=== PATIENT | male | born 1975 | race American Indian/Alaskan Native ===

== ENCOUNTER 2017-02-04 23:13 | Emergency (ER) | payer MEDICARE, OTHER ==
[2017-02-05 00:53] LABS: Basophils % (Auto) 0.4 % (0.0-1.8); Eosinophils % (Auto) 0.5 % (0.0-4.3); Hemoglobin 14.9 gm/dl (11.8-15.2); Mean Corpuscular HGB Conc 34 % (32-34); Mean Corpuscular Hemoglobin 33 pg (28-32); Mean Corpuscular Volume 97 fl (84-94); Platelet Count 280 K/mm3 (140-440); Red Blood Count 4.52 M/mm3 (3.65-5.03); Red Cell Distribution Width 15.6 % (13.2-15.2); White Blood Count 6.8 K/mm3 (4.5-11.0)
[2017-02-05 01:11] LABS: Anion Gap 17 mmol/L; BUN/Creatinine Ratio 9.09; Blood Urea Nitrogen 10 mg/dL (9-20); Carbon Dioxide 26 mmol/L (22-30); Chloride 100.3 mmol/L (98-107); Glucose 96 mg/dL (75-100); Potassium 3.6 mmol/L (3.6-5.0); Sodium 140 mmol/L (137-145)
[2017-02-05] MEDS ORDERED: ZOFRAN PO ONE (06:16)
[2017-02-05] MEDS ORDERED: ZOFRAN ODT PO ONE (06:16)
[2017-02-05] MEDS ORDERED: TORADOL IM ONE (06:16)
[2017-02-05] MEDS ORDERED: MORPHINE IM ONE (06:16)
--- NOTE | 2017-02-05 06:59 | Emergency Department Report ---
ED Extremity Problem HPI - General Chief complaint: Extremity Problem,Nontraumatic Stated complaint: RIGHT FOOT INJURY Time Seen by Provider: 02/05/17 05:13 Source: patient Mode of arrival: Ambulatory Limitations: No Limitations - History of Present Illness Initial comments: Pt presents to ED with c/o pain and swelling rt foot and ankle x 2 days. Pt denies SOB. Pt has chills. Past hx of DVT Complaint: extremity pain (right foot and ankle), extremity swelling (right foot and ankle) -: Gradual, days(s) (2, progressively getting worse) Location: right, lower extremity (foot and ankle) -: No myalgia, Yes arthralgia, No fever, No associated dyspnea, No associated chest pain Radiation: none Severity scale (0 -10): 10 Quality: aching, sharp Consistency: intermittent Improves with: nothing Worsens with: weight bearing, walking Associated Symptoms: arthralgias. denies: fever, myalgias, rash - Related Data Previous Rx's Medication Instructions Recorded Last Taken Type Ondansetron [Zofran TAB] 4 mg PO Q8HR PRN #20 tablet 01/29/17 Unknown Rx Oxycodone HCl/Acetaminophen 1 each PO Q6HR PRN #20 tablet 01/29/17 Unknown Rx [Percocet 7.5/325 mg] Pantoprazole [Protonix] 40 mg PO QDAY #30 tablet 01/29/17 Unknown Rx Allergies Allergy/AdvReac Type Severity Reaction Status Date / Time No Known Allergies Allergy Verified 06/25/13 09:48 ED Review of Systems ROS: Stated complaint: RIGHT FOOT INJURY Other details as noted in HPI Comment: All other systems reviewed and negative Constitutional: malaise, weakness. denies: diaphoresis Eyes: denies: eye pain, eye discharge, vision change ENT: denies: ear pain, throat pain, dental pain Respiratory: denies: cough, orthopnea, shortness of breath, SOB with exertion Cardiovascular: denies: chest pain, palpitations, dyspnea on exertion, edema, syncope, paroxysmal nocturnal dyspnea Endocrine: no symptoms reported Gastrointestinal: denies: nausea, vomiting, diarrhea, constipation, hematemesis Genitourinary: denies: urgency, dysuria, frequency, hematuria Musculoskeletal: joint swelling, arthralgia, other (swelling of rt foot). denies: back pain Skin: denies: change in color, pruritus Neurological: denies: headache, weakness, numbness, paresthesias ED Past Medical Hx - Past Medical History Previous Medical History?: Yes Hx Hypertension: Yes Hx Congestive Heart Failure: No Hx Diabetes: No Hx Deep Vein Thrombosis: Yes (in right hand, states 10 years ago) Hx Asthma: No Hx COPD: No Additional medical history: pancreatitis see HPI - Surgical History Past Surgical History?: Yes Hx Cholecystectomy: Yes Additional Surgical History: Left lower extremity rods and pins secondary to fracture, pin in right thumb - Social History Smoking Status: Current Every Day Smoker Substance Use Type: None - Medications Home Medications: Home Medications Medication Instructions Recorded Confirmed Last Taken Type Ondansetron [Zofran TAB] 4 mg PO Q8HR PRN #20 tablet 01/29/17 Unknown Rx Oxycodone HCl/Acetaminophen 1 each PO Q6HR PRN #20 tablet 01/29/17 Unknown Rx [Percocet 7.5/325 mg] Pantoprazole [Protonix] 40 mg PO QDAY #30 tablet 01/29/17 Unknown Rx ED Physical Exam - General Limitations: No Limitations General appearance: alert, in distress (mild to moderate) - Head Head exam: Present: atraumatic, normocephalic, normal inspection - Eye Eye exam: Present: normal appearance, PERRL, EOMI - ENT ENT exam: Present: normal exam, normal orophraynx, mucous membranes moist - Neck Neck exam: Present: normal inspection, full ROM. Absent: tenderness, lymphadenopathy - Respiratory Respiratory exam: Present: normal lung sounds bilaterally. Absent: respiratory distress, wheezes, rales, rhonchi, stridor, chest wall tenderness, accessory muscle use, decreased breath sounds - Cardiovascular Cardiovascular Exam: Present: regular rate, normal rhythm, normal heart sounds - GI/Abdominal GI/Abdominal exam: Present: soft, distended (obese abdomen). Absent: tenderness , guarding, rebound - Rectal Rectal exam: Present: deferred - Expanded Lower Extremity Exam Left Hip exam: Present: normal inspection, full ROM. Absent: tenderness, swelling, abrasion, laceration, ecchymosis Upper Leg exam: Present: normal inspection, full ROM. Absent: tenderness, abrasion, laceration, ecchymosis Knee exam: Present: normal inspection, full ROM. Absent: tenderness, swelling, abrasion, laceration, dislocation, erythema, effusion Lower Leg exam: Present: tenderness, swelling (rt leg, slightly warm to touch) Ankle exam: Present: tenderness, swelling. Absent: ecchymosis, dislocation Foot/Toe exam: Present: tenderness, swelling. Absent: dislocation, erythema, calcaneal tenderness Neuro vascular tendon exam: Present: no vascular compromise - Back Exam Back exam: Present: normal inspection, full ROM. Absent: CVA tenderness (L) - Neurological Exam Neurological exam: Present: alert, oriented X3, CN II-XII intact ED Course Vital Signs 02/04/17 02/05/17 02/05/17 23:48 05:19 05:30 Temperature 98.8 F Pulse Rate 69 54 L Respiratory 20 18 Rate Blood Pressure 126/75 113/69 O2 Sat by Pulse 100 99 99 Oximetry 02/05/17 02/05/17 06:16 06:41 Temperature Pulse Rate Respiratory 18 18 Rate Blood Pressure O2 Sat by Pulse 98 Oximetry ED Medical Decision Making - Lab Data Result diagrams: 02/05/17 00:22 02/05/17 00:22 Critical care attestation.: If time is entered above; I have spent that time in minutes in the direct care of this critically ill patient, excluding procedure time. ED Disposition Condition: Stable Referrals: PRIMARY CARE, [Primary Care Provider] - 3-5 Days
[2017-02-05 07:53] VITALS: BP 123/71
[2017-02-05] MEDS ORDERED: TYLENOL PO ONE (08:35)
[2017-02-05] MEDS ORDERED: NACL 0.45% 1000 ML 0 ML IV ONE (09:50)
[2017-02-05] MEDS ORDERED: NACL 0.9% 1000 ML 1,000 ML ONE (09:51)
--- NOTE | 2017-02-05 10:03 | XRay Report ---
X-RAY RIGHT FOOT THREE VIEWS: 02/05/17 06:13:00 CLINICAL: Swelling. FINDINGS: No fracture or dislocation. Diffuse moderate soft tissue swelling. No soft tissue air or foreign body. Moderate arthritic changes in the midfoot. Plantar calcaneal spur. IMPRESSION: Nonspecific soft tissue swelling. Moderate degenerative changes.
--- NOTE | 2017-02-05 10:04 | XRay Report ---
XRAY RIGHT ANKLE THREE VIEWS: 02/04/17 06:22 CLINICAL: Ankle swelling. FINDINGS: The ankle mortise is intact.No fracture or dislocation. Moderate soft tissue swelling, medial greater than lateral. No soft tissue air or foreign body. IMPRESSION: Nonspecific soft tissue swelling.
--- NOTE | 2017-02-05 10:40 | Event Note ---
Date: 02/05/17 Ultrasound of the right lower extremity demonstrates a DVT in the right superficial femoral vein. Patient denies headache, neck pain, chest pain, abdominal pain, shortness of breath, hematemesis/bright red blood per rectum. Case is discussed with vascular surgeon on-call, Dr. Gerardo, who recommends eliquis, 10 mg twice daily for the next week, and then 5 mg daily twice daily. Patient will be started on this medication today, discharged with a one-month supply, and instructed to follow-up with either outpatient primary care, or vascular surgery. He will be discharged at this time, return precautions are reviewed. Vital Signs 02/04/17 02/05/17 02/05/17 23:48 05:19 05:30 Temperature 98.8 F Pulse Rate 69 54 L Respiratory 20 18 Rate Blood Pressure 126/75 113/69 O2 Sat by Pulse 100 99 99 Oximetry 02/05/17 02/05/17 02/05/17 05:46 06:00 06:16 Temperature Pulse Rate 53 L 53 L 69 Respiratory 16 16 14 Rate Blood Pressure 113/69 131/80 131/80 O2 Sat by Pulse 100 100 100 Oximetry 02/05/17 02/05/17 02/05/17 06:30 06:41 06:46 Temperature Pulse Rate 60 61 Respiratory 18 18 18 Rate Blood Pressure 130/78 130/78 O2 Sat by Pulse 100 98 Oximetry 02/05/17 02/05/17 02/05/17 07:00 07:11 07:16 Temperature Pulse Rate 56 L Respiratory 16 18 Rate Blood Pressure 122/70 122/70 O2 Sat by Pulse 97 98 Oximetry 02/05/17 02/05/17 02/05/17 07:30 07:46 09:00 Temperature Pulse Rate Respiratory 18 Rate Blood Pressure 123/71 123/71 O2 Sat by Pulse 86 100 Oximetry Lab Results 02/05/17 02/05/17 02/05/17 Range/Units 00:22 00:22 07:09 WBC 6.8 (4.5-11.0) K/mm3 RBC 4.52 (3.65-5.03) M/mm3 Hgb 14.9 (11.8-15.2) gm/dl Hct 44.0 (35.5-45.6) % MCV 97 H (84-94) fl MCH 33 H (28-32) pg MCHC 34 (32-34) % RDW 15.6 H (13.2-15.2) % Plt Count 280 (140-440) K/mm3 Lymph % (Auto) 27.8 (13.4-35.0) % Mccormick % (Auto) 9.2 H (0.0-7.3) % Eos % (Auto) 0.5 (0.0-4.3) % Baso % (Auto) 0.4 (0.0-1.8) % Lymph # 1.9 (1.2-5.4) K/mm3 Mccormick # 0.6 (0.0-0.8) K/mm3 Eos # 0.0 (0.0-0.4) K/mm3 Baso # 0.0 (0.0-0.1) K/mm3 Seg Neutrophils % 62.1 (40.0-70.0) % Seg Neutrophils # 4.2 (1.8-7.7) K/mm3 D-Dimer (0-234) ng/mlDDU Sodium 140 (137-145) mmol/L Potassium 3.6 (3.6-5.0) mmol/L Chloride 100.3 (98-107) mmol/L Carbon Dioxide 26 (22-30) mmol/L Anion Gap 17 mmol/L BUN 10 (9-20) mg/dL Creatinine 1.1 (0.8-1.5) mg/dL Estimated GFR > 60 ml/min BUN/Creatinine Ratio 9.09 % Glucose 96 (75-100) mg/dL Lactic Acid 1.10 (0.7-2.0) mmol/L Calcium 9.0 (8.4-10.2) mg/dL 02/05/17 Range/Units 07:09 WBC (4.5-11.0) K/mm3 RBC (3.65-5.03) M/mm3 Hgb (11.8-15.2) gm/dl Hct (35.5-45.6) % MCV (84-94) fl MCH (28-32) pg MCHC (32-34) % RDW (13.2-15.2) % Plt Count (140-440) K/mm3 Lymph % (Auto) (13.4-35.0) % Mccormick % (Auto) (0.0-7.3) % Eos % (Auto) (0.0-4.3) % Baso % (Auto) (0.0-1.8) % Lymph # (1.2-5.4) K/mm3 Mccormick # (0.0-0.8) K/mm3 Eos # (0.0-0.4) K/mm3 Baso # (0.0-0.1) K/mm3 Seg Neutrophils % (40.0-70.0) % Seg Neutrophils # (1.8-7.7) K/mm3 D-Dimer 815.92 H (0-234) ng/mlDDU Sodium (137-145) mmol/L Potassium (3.6-5.0) mmol/L Chloride (98-107) mmol/L Carbon Dioxide (22-30) mmol/L Anion Gap mmol/L BUN (9-20) mg/dL Creatinine (0.8-1.5) mg/dL Estimated GFR ml/min BUN/Creatinine Ratio % Glucose (75-100) mg/dL Lactic Acid (0.7-2.0) mmol/L Calcium (8.4-10.2) mg/dL LIVE [facility],JEANNIE DALAL Male : 1975 MedRec# [id number] 02/05/17 10:13 - Radiology Dept. Note by MELISSA ELENA Acct Num: [id number] : 1975 Patient Age: 41 VASCULAR LAB PRELIMINARY REPORT BLE VENOUS DOPPLER COMPLETED DVT NOTED IN RT SFV DR. PEÑA INFORMED Initialized on 02/05/17 10:13 - END OF NOTE
[2017-02-05] MEDS ORDERED: LOVENOX SUB-Q ONE (10:42)
--- NOTE | 2017-02-07 07:36 | Vascular Lab Report ---
LOWER EXTREMITY VENOUS DUPLEX: REASON FOR EXAM: Swelling of the lower extremities. COMMENTS ON THE RIGHT: Nonocclusive age indeterminate deep venous thrombosis is noted in the right femoral vein. The remaining veins visualized are freely compressible without evidence of internal echogenicity. Spontaneous and phasic flow is present proximally. COMMENTS ON THE LEFT: All veins visualized are freely compressible without evidence of internal echogenicity. Flow is spontaneous and phasic throughout. IMPRESSION: Age indeterminant deep venous thrombosis in the right lower extremity
== END 2017-02-05 11:00 | disposition home or self-care (01) ==
LOC: ED 23:13
DX: M25.571 Pain in right ankle and joints of right foot (principal); M25.471 Effusion, right ankle; I10 Essential (primary) hypertension; I82.621 Acute embolism and thrombosis of deep veins of right upper extremity; F17.200 Nicotine dependence, unspecified, uncomplicated
CPT/HCPCS: 36415; 73610; 73630; 80048; 82140; 85025; 85379; 93970; 96372; 99284; J1885; J2270; J7030; Q0162

== ENCOUNTER 2017-03-04 11:10 | Emergency (ER) | payer MEDICAID, OTHER ==
[2017-03-04 13:08] LABS: Hematocrit 44.9 % (35.5-45.6); Mean Corpuscular HGB Conc 33 % (32-34); Mean Corpuscular Hemoglobin 32 pg (28-32); Mean Corpuscular Volume 97 fl (84-94); Red Blood Count 4.63 M/mm3 (3.65-5.03); Red Cell Distribution Width 15.4 % (13.2-15.2); White Blood Count 8.1 K/mm3 (4.5-11.0)
[2017-03-04 13:12] LABS: Albumin 3.6 g/dL (3.9-5); Alkaline Phosphatase 62 units/L (35-129); Anion Gap 18 mmol/L; BUN/Creatinine Ratio 8; Blood Urea Nitrogen 8 mg/dL (9-20); Calcium 8.6 mg/dL (8.4-10.2); Carbon Dioxide 23 mmol/L (22-30); Chloride 101.3 mmol/L (98-107); Glucose 106 mg/dL (75-100); Lipase 23 units/L (13-60); Potassium 4.3 mmol/L (3.6-5.0); Sodium 138 mmol/L (137-145); Total Protein 7.3 g/dL (6.3-8.2)
[2017-03-04 13:27] LABS: Alanine Aminotransferase 17 units/L (7-56)
[2017-03-04 14:05] LABS: Platelet Count 179 K/mm3 (140-440)
[2017-03-04] MEDS ORDERED: MORPHINE IM ONE (17:55)
[2017-03-04] MEDS ORDERED: ZOFRAN IM ONE (17:55)
--- NOTE | 2017-03-04 18:01 | Emergency Department Report ---
ED Abdominal Pain HPI - General Chief Complaint: Abdominal Pain Stated Complaint: LOWER LEFT ABDOMINAL PAIN Time Seen by Provider: 03/04/17 17:45 Source: patient Mode of arrival: Ambulatory Limitations: No Limitations - History of Present Illness Initial Comments: PATIENT HAS H/O CHRONIC PANCREATITIS, C/O ABDOMINAL PAIN AND VOMITING. PATIENT STATED THAT HE HAS A FULL WORK-UP AN OUTPATIENT AND WAS TOLD THAT HE DOESN'T HAVE CANCER. MD Complaint: abdominal pain -: Gradual Location: epigastric Migration to: no migration Severity scale (0 -10): 7 Quality: sharp Consistency: intermittent Worsens With: nothing Associated Symptoms: nausea, vomiting - Related Data Previous Rx's Medication Instructions Recorded Last Taken Type Pantoprazole [Protonix] 40 mg PO QDAY #30 tablet 01/29/17 Unknown Rx Apixaban [Eliquis] 5 mg PO BID #10 tablet 02/05/17 Unknown Rx amLODIPine [Norvasc] 5 mg PO DAILY #30 tab 02/05/17 Unknown Rx Ondansetron [Zofran Odt] 4 mg PO Q8HR PRN #14 tab.rapdis 03/04/17 Unknown Rx Warfarin Sodium [Coumadin] 2.5 mg PO DAILY #30 tablet 03/04/17 Unknown Rx traMADol [Ultram 50 MG tab] 50 mg PO Q4HR PRN #14 tablet 03/04/17 Unknown Rx Allergies Allergy/AdvReac Type Severity Reaction Status Date / Time No Known Allergies Allergy Verified 06/25/13 09:48 ED Review of Systems ROS: Stated complaint: LOWER LEFT ABDOMINAL PAIN Other details as noted in HPI Comment: All other systems reviewed and negative Constitutional: denies: chills, fever Respiratory: denies: cough, orthopnea, shortness of breath, SOB with exertion, SOB at rest Cardiovascular: denies: chest pain, palpitations Gastrointestinal: abdominal pain, nausea, vomiting, diarrhea Genitourinary: denies: urgency, frequency, hematuria Musculoskeletal: denies: back pain Skin: denies: rash Neurological: denies: headache, numbness ED Past Medical Hx - Past Medical History Previous Medical History?: Yes Hx Hypertension: Yes Hx Congestive Heart Failure: No Hx Diabetes: No Hx Deep Vein Thrombosis: Yes (in right hand, states 10 years ago) Hx Asthma: No Hx COPD: No Additional medical history: pancreatitis see HPI - Surgical History Past Surgical History?: Yes Hx Cholecystectomy: Yes Additional Surgical History: Left lower extremity rods and pins secondary to fracture, pin in right thumb - Social History Smoking Status: Never Smoker Substance Use Type: None - Medications Home Medications: Home Medications Medication Instructions Recorded Confirmed Last Taken Type Pantoprazole [Protonix] 40 mg PO QDAY #30 tablet 01/29/17 03/04/17 Unknown Rx Apixaban [Eliquis] 5 mg PO BID #10 tablet 02/05/17 03/04/17 Unknown Rx amLODIPine [Norvasc] 5 mg PO DAILY #30 tab 02/05/17 03/04/17 Unknown Rx Ondansetron [Zofran Odt] 4 mg PO Q8HR PRN #14 tab.rapdis 03/04/17 Unknown Rx Warfarin Sodium [Coumadin] 2.5 mg PO DAILY #30 tablet 03/04/17 Unknown Rx traMADol [Ultram 50 MG tab] 50 mg PO Q4HR PRN #14 tablet 03/04/17 Unknown Rx ED Physical Exam - General Limitations: No Limitations General appearance: alert, in no apparent distress - Head Head exam: Present: normocephalic - Eye Eye exam: Present: normal appearance - ENT ENT exam: Present: normal exam, normal orophraynx - Neck Neck exam: Present: normal inspection, full ROM - Respiratory Respiratory exam: Present: normal lung sounds bilaterally. Absent: respiratory distress, wheezes, rales, rhonchi - Cardiovascular Cardiovascular Exam: Present: regular rate, normal rhythm, normal heart sounds - GI/Abdominal GI/Abdominal exam: Present: soft, normal bowel sounds. Absent: distended, tenderness, guarding, rebound, rigid, mass, bruit, pulsatile mass, hernia - Extremities Exam Extremities exam: Present: pedal edema, calf tenderness - Back Exam Back exam: Present: normal inspection. Absent: CVA tenderness (R), CVA tenderness (L) - Neurological Exam Neurological exam: Present: alert, oriented X3, CN II-XII intact, normal gait - Skin Skin exam: Present: warm, intact, normal color ED Course Vital Signs 03/04/17 03/04/17 03/04/17 11:47 18:01 18:22 Temperature 98.4 F Pulse Rate 97 H 92 H Respiratory 20 13 Rate Blood Pressure 122/77 119/86 119/86 Blood Pressure [Right] O2 Sat by Pulse 97 97 Oximetry 03/04/17 03/04/17 03/04/17 18:30 18:45 19:00 Temperature Pulse Rate 72 70 74 Respiratory 8 L 16 20 Rate Blood Pressure 132/73 132/73 136/72 Blood Pressure [Right] O2 Sat by Pulse 100 100 100 Oximetry 03/04/17 03/04/17 03/04/17 19:10 19:15 19:30 Temperature 98 F Pulse Rate 78 83 92 H Respiratory 14 14 14 Rate Blood Pressure 104/84 130/79 Blood Pressure 104/84 [Right] O2 Sat by Pulse 100 100 100 Oximetry 03/04/17 03/04/17 03/04/17 19:44 19:45 20:01 Temperature Pulse Rate 74 74 Respiratory 14 17 10 L Rate Blood Pressure 130/79 121/68 Blood Pressure [Right] O2 Sat by Pulse 99 100 Oximetry 03/04/17 03/04/17 03/04/17 20:14 20:15 20:30 Temperature Pulse Rate 72 75 Respiratory 16 17 15 Rate Blood Pressure 121/68 132/71 Blood Pressure [Right] O2 Sat by Pulse 100 98 Oximetry 03/04/17 03/04/17 03/04/17 20:45 21:00 21:15 Temperature Pulse Rate 74 73 75 Respiratory 17 9 L 14 Rate Blood Pressure 132/71 122/67 122/67 Blood Pressure [Right] O2 Sat by Pulse 99 97 98 Oximetry 03/04/17 03/04/17 21:30 22:29 Temperature Pulse Rate 72 Respiratory 17 16 Rate Blood Pressure 118/64 Blood Pressure [Right] O2 Sat by Pulse 96 Oximetry - Reevaluation(s) Reevaluation #1: 03/04/17 22:23 PATIENT STATED THAT HE DOESN'T HAVE A PLACE TO GO, HE LIVE WITH A FRIEND AND THEY ARE NOT HOME NOW. Reevaluation #2: 03/04/17 22:48 PATIENT STATED THAT HE CAN'T AFFORD ELLIQUIS, SO I STARTED HIM ON COUMADIN AND ADVICE HIM TO FOLLOW WITH HIS PCP ED Medical Decision Making - Lab Data Result diagrams: 03/04/17 12:36 03/04/17 12:36 - Radiology Data Radiology results: image reviewed interpreted by me: NO ACUTE ABDOMINAL ABNORMALITIES. - Medical Decision Making PATIENT STATED THAT HE FEEL BETTER. I BELIEVE THIS IS A CHRONIC ABDOMINAL PAIN. I ADVISED PATIENT TO FOLLOW-UP WITH HIS PCP. Critical care attestation.: If time is entered above; I have spent that time in minutes in the direct care of this critically ill patient, excluding procedure time. ED Disposition Clinical Impression: Abdominal pain Disposition: DC- TO HOME OR SELFCARE Is pt being admited?: No Condition: Stable Instructions: Abdominal Pain (ED), Warfarin (By mouth) Prescriptions: Ondansetron [Zofran Odt] 4 mg PO Q8HR PRN #14 tab.rapdis PRN Reason: Nausea And Vomiting traMADol [Ultram 50 MG tab] 50 mg PO Q4HR PRN #14 tablet PRN Reason: Pain Warfarin Sodium [Coumadin] 2.5 mg PO DAILY #30 tablet Referrals: PRIMARY CARE, [Primary Care Provider] - 3-5 Days
[2017-03-04] MEDS ORDERED: MORPHINE ONE (18:08)
[2017-03-04 18:53] LABS: Bilirubin,Urine SM (Negative); Blood,Urine NEG (Negative); Ketones,Urine TR mg/dL (Negative); Leukocyte Esterase,Urine TR (Negative); Mucus,Urine 3+ /HPF; Nitrite,Urine NEG (Negative)
[2017-03-04] MEDS ORDERED: TORADOL IV ONE (19:32)
[2017-03-04] MEDS ORDERED: NACL 0.9% 1000 ML 1,000 ML IV ONE (19:32)
[2017-03-04] MEDS ORDERED: MORPHINE IV ONE (22:24)
[2017-03-04 22:57] VITALS: BP 126/66
--- NOTE | 2017-03-05 09:41 | XRay Report ---
Abdominal series: History: Abdominal pain. Findings: No acute lung changes. No free intraperitoneal air. No bowel distention or wall thickening. No radiopaque calculus or abnormal calcification. Impression: Essentially negative abdomen.
== END 2017-03-04 22:54 | disposition home or self-care (01) ==
LOC: ED 11:10
DX: R10.13 Epigastric pain (principal); R11.2 Nausea with vomiting, unspecified; I10 Essential (primary) hypertension; Z79.01 Long term (current) use of anticoagulants
CPT/HCPCS: 36415; 74022; 80053; 81001; 83690; 85025; 96361; 96372; 96374; 96375; 99284; J1885; J2270; J2405; J7030

== ENCOUNTER 2017-07-28 05:25 | Emergency (ER) | payer OTHER ==
[2017-07-28 06:41] LABS: Alanine Aminotransferase 16 units/L (7-56); Albumin 4.4 g/dL (3.9-5); BUN/Creatinine Ratio 9; Blood Urea Nitrogen 10 mg/dL (9-20); Calcium 8.6 mg/dL (8.4-10.2); Hemolysis Index 45
[2017-07-28 07:53] LABS: Hematocrit 47.1 % (35.5-45.6); Hemoglobin 15.6 gm/dl (11.8-15.2); Mean Corpuscular HGB Conc 33 % (32-34); Mean Corpuscular Hemoglobin 33 pg (28-32); Mean Corpuscular Volume 100 fl (84-94); Platelet Count 242 K/mm3 (140-440)
[2017-07-28 08:43] LABS: Bilirubin,Urine NEG (Negative); Blood,Urine NEG (Negative); Color,Urine Yellow (Yellow); Mucus,Urine FEW /HPF; Protein,Urine <15 mg/dL mg/dL (Negative); Urobilinogen,Urine < 2.0 mg/dL (<2.0)
--- NOTE | 2017-07-28 09:11 | Emergency Department Report ---
ED General Adult HPI - General Chief complaint: Abdominal Pain Stated complaint: ABD PAIN; HX PANCREATITIS; +ETOH Time Seen by Provider: 07/28/17 09:08 Source: patient Mode of arrival: Ambulatory Limitations: No Limitations - History of Present Illness Initial comments: The patient is perhaps unreliable historian. He tells me that he drank alcohol 2 days ago and now he believes he has recurrent pancreatitis. He states he knows that he shouldn't drink and was aware that this might happen. He did not want hurt himself. He complains of epigastric to mid abdominal pain that does not radiate. Place of nausea but no recent vomiting. He denies fever or chills. He also states that his legs are swelling. On examination is his right leg is disproportionately red and swollen. He denies a history of previous DVT. However indeed upon review of his previous records and his family that he is noncompliant with his request and has had previous anticoagulant therapy. Review of his previous records demonstrate that he had a suspicion of a mass of the head of the pancreas. An MRCP was recommended. But secondary to prior ORIF of his right leg A could not be performed. He never followed up with GI or had a repeat CT since this finding of 01/28/2017. -: Gradual, days(s) Location: abdomen Radiation: non-radiation Quality: aching Consistency: constant Improves with: none Worsens with: none Associated Symptoms: nausea/vomiting, other Treatments Prior to Arrival: none - Related Data Previous Rx's Medication Instructions Recorded Last Taken Type Pantoprazole [Protonix] 40 mg PO QDAY #30 tablet 01/29/17 Unknown Rx Apixaban [Eliquis] 5 mg PO BID #10 tablet 02/05/17 Unknown Rx amLODIPine [Norvasc] 5 mg PO DAILY #30 tab 02/05/17 Unknown Rx Ondansetron [Zofran Odt] 4 mg PO Q8HR PRN #14 tab.rapdis 03/04/17 Unknown Rx Warfarin Sodium [Coumadin] 2.5 mg PO DAILY #30 tablet 03/04/17 Unknown Rx traMADol [Ultram 50 MG tab] 50 mg PO Q4HR PRN #14 tablet 03/04/17 Unknown Rx Allergies Allergy/AdvReac Type Severity Reaction Status Date / Time No Known Allergies Allergy Verified 06/25/13 09:48 ED Review of Systems ROS: Stated complaint: ABD PAIN; HX PANCREATITIS; +ETOH Other details as noted in HPI Constitutional: denies: chills, fever Eyes: denies: eye pain, eye discharge, vision change ENT: denies: ear pain, throat pain Respiratory: denies: cough, shortness of breath, wheezing Cardiovascular: denies: chest pain, palpitations Endocrine: no symptoms reported Gastrointestinal: abdominal pain, nausea. denies: diarrhea Genitourinary: denies: urgency, dysuria Musculoskeletal: as per HPI. denies: back pain, joint swelling, arthralgia Skin: denies: rash, lesions Neurological: denies: headache, weakness, paresthesias Psychiatric: denies: anxiety, depression Hematological/Lymphatic: denies: easy bleeding, easy bruising ED Past Medical Hx - Past Medical History Previous Medical History?: Yes Hx Hypertension: Yes Hx Congestive Heart Failure: No Hx Diabetes: No Hx Deep Vein Thrombosis: Yes (in right hand, states 10 years ago) Hx Asthma: No Hx COPD: No Additional medical history: pancreatitis see HPI - Surgical History Past Surgical History?: Yes Hx Cholecystectomy: Yes Additional Surgical History: Left lower extremity rods and pins secondary to fracture, pin in right thumb - Social History Smoking Status: Current Every Day Smoker Substance Use Type: Alcohol - Medications Home Medications: Home Medications Medication Instructions Recorded Confirmed Last Taken Type Pantoprazole [Protonix] 40 mg PO QDAY #30 tablet 01/29/17 03/04/17 Unknown Rx Apixaban [Eliquis] 5 mg PO BID #10 tablet 02/05/17 03/04/17 Unknown Rx amLODIPine [Norvasc] 5 mg PO DAILY #30 tab 02/05/17 03/04/17 Unknown Rx Ondansetron [Zofran Odt] 4 mg PO Q8HR PRN #14 tab.rapdis 03/04/17 Unknown Rx Warfarin Sodium [Coumadin] 2.5 mg PO DAILY #30 tablet 03/04/17 Unknown Rx traMADol [Ultram 50 MG tab] 50 mg PO Q4HR PRN #14 tablet 03/04/17 Unknown Rx ED Physical Exam - General Limitations: No Limitations General appearance: alert, in no apparent distress - Head Head exam: Present: atraumatic, normocephalic - Eye Eye exam: Present: normal appearance, PERRL, EOMI. Absent: scleral icterus - ENT ENT exam: Present: mucous membranes moist - Neck Neck exam: Present: normal inspection. Absent: tenderness, meningismus - Respiratory Respiratory exam: Present: normal lung sounds bilaterally. Absent: respiratory distress - Cardiovascular Cardiovascular Exam: Present: regular rate, normal rhythm. Absent: systolic murmur, diastolic murmur, rubs, gallop - GI/Abdominal GI/Abdominal exam: Present: soft, normal bowel sounds. Absent: distended, tenderness, guarding, rebound, rigid, organomegaly, mass, bruit, pulsatile mass , hernia - Rectal Rectal exam: Present: deferred - Extremities Exam Extremities exam: Present: calf tenderness, other (erythema of the left leg below the knee neurovascular exam is intact. The calf is somewhat full.) - Back Exam Back exam: Present: normal inspection. Absent: CVA tenderness (R), CVA tenderness (L) - Neurological Exam Neurological exam: Present: alert, oriented X3, CN II-XII intact. Absent: motor sensory deficit - Psychiatric Psychiatric exam: Present: normal affect, normal mood - Skin Skin exam: Present: warm, dry, intact, normal color. Absent: rash ED Course Vital Signs 07/28/17 07/28/17 07/28/17 05:39 10:30 10:46 Temperature 98.1 F Pulse Rate 87 Respiratory 18 Rate Blood Pressure 129/79 O2 Sat by Pulse 99 100 100 Oximetry 07/28/17 07/28/17 07/28/17 11:00 11:16 11:30 Temperature Pulse Rate Respiratory Rate Blood Pressure O2 Sat by Pulse 99 98 100 Oximetry 07/28/17 07/28/17 07/28/17 11:46 12:38 12:45 Temperature Pulse Rate Respiratory Rate Blood Pressure 162/79 O2 Sat by Pulse 99 100 99 Oximetry 07/28/17 07/28/17 07/28/17 13:00 13:16 13:30 Temperature Pulse Rate Respiratory Rate Blood Pressure 127/76 127/76 130/51 O2 Sat by Pulse 98 98 97 Oximetry 07/28/17 07/28/17 07/28/17 13:46 14:00 14:16 Temperature Pulse Rate Respiratory Rate Blood Pressure 130/51 132/85 132/85 O2 Sat by Pulse 97 100 100 Oximetry 07/28/17 07/28/17 07/28/17 14:30 14:46 15:00 Temperature Pulse Rate Respiratory Rate Blood Pressure 132/85 132/85 130/88 O2 Sat by Pulse 100 100 100 Oximetry 07/28/17 15:18 Temperature Pulse Rate Respiratory Rate Blood Pressure O2 Sat by Pulse 100 Oximetry - Reevaluation(s) Reevaluation #1: The patient's lipase is slightly elevated. A CT of his abdomen actually did no longer showed a mass of the head of the pancreas. There was no inflammatory process. A Doppler of his right leg was positive for DVT. Therefore, he was referred to Dr. Pena of the hospitalist service further care and evaluation. He was given 1 dose of antibiotics. The leg does look somewhat cellulitic as well. 07/28/17 15:40 ED Medical Decision Making - Lab Data Result diagrams: 07/28/17 05:58 07/28/17 06:10 Laboratory Results - last 24 hr 07/28/17 07/28/17 07/28/17 05:58 06:10 07:37 WBC 5.6 RBC 4.70 Hgb 15.6 H Hct 47.1 H MCV 100 H MCH 33 H MCHC 33 RDW 16.0 H Plt Count 242 Lymph % (Auto) Aircraft Maintenance Manager [place] % (Auto) Aircraft Maintenance Manager Eos % (Auto) Aircraft Maintenance Manager Baso % (Auto) Aircraft Maintenance Manager Lymph # Aircraft Maintenance Manager [place] # Aircraft Maintenance Manager Eos # Aircraft Maintenance Manager Baso # Aircraft Maintenance Manager Seg Neutrophils % Aircraft Maintenance Manager Seg Neutrophils # Aircraft Maintenance Manager Sodium 138 Potassium 4.5 Chloride 101.5 Carbon Dioxide 22 Anion Gap 19 BUN 10 Creatinine 1.1 Estimated GFR > 60 BUN/Creatinine Ratio 9 Glucose 110 H Calcium 8.6 Total Bilirubin 0.40 AST 26 ALT 16 Alkaline Phosphatase 81 Total Protein 7.4 Albumin 4.4 Albumin/Globulin Ratio 1.5 Urine Color Yellow Urine Turbidity Clear Urine pH 5.0 Ur Specific [place] 1.015 Urine Protein <15 mg/dl Urine Glucose (UA) Neg Urine Ketones Neg Urine Blood Neg Urine Nitrite Neg Urine Bilirubin Neg Urine Urobilinogen < 2.0 Ur Leukocyte Esterase Lg Urine WBC (Auto) 7.0 H Urine RBC (Auto) 2.0 U Epithel Cells (Auto) 1.0 Urine Mucus Few - Radiology Data Radiology results: report reviewed Critical care attestation.: If time is entered above; I have spent that time in minutes in the direct care of this critically ill patient, excluding procedure time. ED Disposition Clinical Impression: Cellulitis of leg, right Abdominal pain Qualifiers: Abdominal location: upper abdomen, unspecified Qualified Code(s): R10.10 - Upper abdominal pain, unspecified Right leg DVT Qualifiers: Affected thrombotic vein of extremity: popliteal Chronicity: acute Qualified Code(s): I82.431 - Acute embolism and thrombosis of right popliteal vein Disposition: OP ADMIT IP TO THIS HOSP Is pt being admited?: Yes Does the pt Need Aspirin: Yes Condition: Stable Referrals: MICHAELA MIRANDA MD [Primary Care Provider] - 3-5 Days Time of Disposition: 15:44
[2017-07-28] MEDS ORDERED: DILAUDID IV ONE ×2 (09:27→12:49)
[2017-07-28] MEDS ORDERED: ZOFRAN IV ONE (09:27)
[2017-07-28] MEDS ORDERED: NACL 0.9% 1000 ML 1,000 ML IV ONE (09:28)
--- NOTE | 2017-07-28 10:41 | Cat Scan Report ---
CT ABDOMEN PELVIS WITH CONTRAST: HISTORY: Abdominal pain, pancreatic head mass. COMPARISON: Multiple previous CT abdomen and pelvis and examinations dating back to 01/04/14 were reviewed. MR abdomen dated 01/08/14. TECHNIQUE: Helical CT in 1.25mm intervals following IV contrast. Sagittal and coronal reconstructions. FINDINGS: Lung bases: Normal. Liver: Normal. Biliary system: Cholecystectomy has been performed. No biliary dilatation is appreciated. Pancreas: There is minimal dilatation of the pancreatic duct which is unchanged over multiple previous exams. I see no convincing pancreatic mass. The pancreatic head contains a focal calcification but is unchanged in size or contour since 2013. Previous MR does demonstrate a pseudocyst in this area which has apparently resolved or been aspirated. No acute inflammatory changes are appreciated. Spleen: Normal. Kidneys/ureters/bladder: The left kidney is normal. There is multifocal cortical scarring in the posterior right kidney. No cystic disease, calculus, mass or hydronephrosis. The ureters and bladder are unremarkable. Adrenal glands: Normal. Aorta: Normal. Intestines: Within normal limits given no oral contrast was administered. Appendix: Normal. Pelvic viscera: Normal. Ascites: None. Adenopathy: None. Musculoskeletal: Normal. IMPRESSION: No acute inflammatory process is appreciated. Mild dilatation of the pancreatic duct is unchanged over multiple previous exams. I am not entirely convinced of pancreatic head mass is present. The pancreas appears unchanged dating back to 2013. There was evidence for a pancreatic pseudocyst on MRI dated 01/08/14. Multifocal cortical scarring in the right kidney suggesting previous bouts of pyelonephritis.
[2017-07-28 11:24] LABS: Band Neutrophils # (Manual) 0.1 K/mm3; Basophils % (Manual) 0 % (0.0-1.8); Eosinophils % (Manual) 0 % (0.0-4.3); Macrocytosis 1+; Platelet Estimate Consistent w Auto; Total Cells Counted 100
[2017-07-28] MEDS ORDERED: VANCOMYCIN PHARMACY TO DOSE IV SCH (12:00)
[2017-07-28] MEDS ORDERED: VANCOMYCIN 2,000 MG in NACL 0.9% 500 ML 500 ML IV ONE (12:30)
[2017-07-28] MEDS ORDERED: ELIQUIS PO SCH ×2 (14:14→22:00)
--- NOTE | 2017-07-28 14:16 | History and Physical Report ---
History of Present Illness Chief complaint: My stomach and leg was hurting History of present illness: 41 YO MAle with HTN, chronic Pancreatitis,Nicotine Dependence, DVT noncompliant with anticoagulation, ETOH Dependence, presents to ED for evaluation. Pt states that he has experienced pain in his abdomen which began after drinking ETOH. PT also complains of chronic Right lower leg pain. Pt seen and evaluated in ED and found to have chronic DVT and noncompliant with anticoagulation. Pt treated with GI workup which was unremarkable, as was serial abdominal exam. Pt initiated on therapeutic anticoagulation. Pt medically optimized and back to usual state of health. No RV strain pattern, EKG changes, or signs of extremis. Pt counseled regarding medication noncompliance. Pt acknowledges understanding instructions. Past History Past Medical History: DVT, hypertension, PVD Past Surgical History: cholecystectomy, Other (Left leg surgery) Social history: smoking Family history: hypertension Medications and Allergies Allergies Allergy/AdvReac Type Severity Reaction Status Date / Time No Known Allergies Allergy Verified 06/25/13 09:48 Home Medications Medication Instructions Recorded Confirmed Last Taken Type Pantoprazole [Protonix] 40 mg PO QDAY #30 tablet 01/29/17 03/04/17 Unknown Rx Apixaban [Eliquis] 5 mg PO BID #10 tablet 02/05/17 03/04/17 Unknown Rx amLODIPine [Norvasc] 5 mg PO DAILY #30 tab 02/05/17 03/04/17 Unknown Rx Ondansetron [Zofran Odt] 4 mg PO Q8HR PRN #14 tab.rapdis 03/04/17 Unknown Rx Warfarin Sodium [Coumadin] 2.5 mg PO DAILY #30 tablet 03/04/17 Unknown Rx traMADol [Ultram 50 MG tab] 50 mg PO Q4HR PRN #14 tablet 03/04/17 Unknown Rx Active Meds: Active Medications Apixaban (Eliquis) 10 mg PO Q12HR DIDI; Protocol Sodium Chloride (Nacl 0.9% 1000 Ml) 1,000 mls @ 125 mls/hr IV ONCE ONE Stop: 07/28/17 17:27 Last Admin: 07/28/17 09:40 Dose: 125 mls/hr Vancomycin HCl 2,000 mg/ (Sodium Chloride) 520 mls @ 250 mls/hr IV ONCE ONE Stop: 07/28/17 14:34 Last Admin: 07/28/17 12:58 Dose: 250 mls/hr Vancomycin HCl (Vancomycin Pharmacy To Dose) 1 each IV PKCONSULT DIDI; Protocol Review of Systems Constitutional: no weight loss, no weight gain, no fever, no chills, no sweats Ears, nose, mouth and throat: no ear pain, no ear discharge, no tinnitis, no decreased hearing, no nose pain, no nasal discharge Cardiovascular: no chest pain, no orthopnea, no palpitations, no rapid/ irregular heart beat, no edema, no syncope Respiratory: no cough, no cough with sputum, no excessive sputum, no hemoptysis , no shortness of breath Gastrointestinal: abdominal pain, no nausea, no vomiting, no diarrhea, no constipation, no change in bowel habits Genitourinary Male: no dysuria, no hematuria, no flank pain, no discharge Rectal: no pain, no incontinence, no bleeding Musculoskeletal: no neck stiffness, no neck pain, no shooting arm pain, no arm numbness/tingling, no low back pain, no shooting leg pain, no leg numbness/ tingling Integumentary: no rash, no pruritis, no redness, no sores, no wounds, no jaundice, no boils Neurological: no head injury, no transient paralysis, no paralysis, no weakness , no parathesias, no numbness, no tingling, no seizures, no syncope, no tremors Psychiatric: no anxiety, no memory loss, no change in sleep habits, no sleep disturbances, no insomnia, no hypersomnia, no change in appetite, no change in libido, no suicidal ideation Endocrine: no cold intolerance, no heat intolerance, no polyphagia, no excessive thirst, no polydipsia, no polyuria, no nocturia Hematologic/Lymphatic: no easy bruising, no easy bleeding, no lymphadenopathy, no lymphedema Allergic/Immunologic: no urticaria, no allergic rhinitis, no wheezing, no persistent infections, no anaphylaxis, no angioedema Exam - Constitutional Vitals: Temp Pulse Resp BP Pulse Ox 98.1 F 87 18 129/79 99 07/28/17 05:39 07/28/17 05:39 07/28/17 05:39 07/28/17 05:39 07/28/17 05:39 General appearance: Present: no acute distress, well-nourished - EENT Eyes: Present: PERRL ENT: hearing intact, clear oral mucosa - Neck Neck: Present: supple, normal ROM - Respiratory Respiratory effort: normal Respiratory: bilateral: CTA - Cardiovascular Heart Sounds: Present: S1 & S2. Absent: rub, click - Extremities Extremities: pulses symmetrical, No edema Peripheral Pulses: within normal limits - Abdominal General gastrointestinal: Present: soft, non-tender, non-distended, normal bowel sounds Male genitourinary: Present: normal - Integumentary Integumentary: Present: clear, warm, dry - Musculoskeletal Musculoskeletal: gait normal, strength equal bilaterally - Psychiatric Psychiatric: appropriate mood/affect, intact judgment & insight - Neurologic Neurologic: CNII-XII intact, moves all extremities Results - Labs CBC & Chem 7: 07/28/17 05:58 07/28/17 06:10 Labs: Abnormal lab results 07/28/17 07/28/17 07/28/17 Range/Units 05:58 06:10 06:10 Hgb 15.6 H (11.8-15.2) gm/dl Hct 47.1 H (35.5-45.6) % MCV 100 H (84-94) fl MCH 33 H (28-32) pg RDW 16.0 H (13.2-15.2) % Lymphocytes % (Manual) 42.0 H (13.4-35.0) % Monocytes % (Manual) 11.0 H (0.0-7.3) % Glucose 110 H (75-100) mg/dL Lipase 76 H (13-60) units/L Urine WBC (Auto) (0.0-6.0) /HPF 07/28/17 Range/Units 07:37 Hgb (11.8-15.2) gm/dl Hct (35.5-45.6) % MCV (84-94) fl MCH (28-32) pg RDW (13.2-15.2) % Lymphocytes % (Manual) (13.4-35.0) % Monocytes % (Manual) (0.0-7.3) % Glucose (75-100) mg/dL Lipase (13-60) units/L Urine WBC (Auto) 7.0 H (0.0-6.0) /HPF Assessment and Plan - Patient Problems (1) Chronic pancreatitis Current Visit: Yes Status: Acute Plan to address problem: CT ABdomen pelvis unremarkable, Lipase normal. Pt counseled regarding ETOH cessation. (2) DVT (deep venous thrombosis) Current Visit: Yes Status: Acute Qualifiers: DVT location: lower extremity Laterality: right Plan to address problem: Therapeutic anticoagulation. Pt given coupon for eliquis. F/U [id number],
[2017-07-28 15:29] VITALS: BP 130/88
--- NOTE | 2017-08-03 10:19 | Vascular Lab Report ---
Right Lower Extremity Venous Duplex Study: Reason for Exam: Pain and swelling of the right lower extremity. Comments on the Right: Partially occluding, acute thrombus is seen in the distal superficial femoral vein, popliteal vein, and into the posterior tibial vein. The remaining veins visualized are freely compressible without evidence of internal echogenicity. Spontaneous and phasic flow is present proximally. Comments on the Left: A limited duplex study was done of the proximal veins of the left lower extremity. All veins visualized are freely compressible without evidence of internal echogenicity. Flow is spontaneous and phasic throughout. No evidence of acute or chronic thrombus is seen in any of the vessels visualized. Impression: Partially occluding, acute deep venous thrombosis involving the distal superficial femoral vein, popliteal vein, and posterior tibial vein of the right lower extremity.
== END 2017-07-28 17:11 | disposition admitted as inpatient to this hospital (09) ==
LOC: ED 05:25
DX: L03.115 Cellulitis of right lower limb (principal); I82.401 Acute embolism and thrombosis of unspecified deep veins of right lower extremity; R10.9 Unspecified abdominal pain; I10 Essential (primary) hypertension; F17.200 Nicotine dependence, unspecified, uncomplicated; Z90.49 Acquired absence of other specified parts of digestive tract
CPT/HCPCS: 36415; 74177; 80053; 81001; 83690; 85007; 85025; 93971; 96361; 96365; 96366; 96375; 96376; 99284; J1170; J2405; J3370; J7030; J7040; Q9967

== ENCOUNTER 2017-11-05 07:59 | Emergency (ER) | payer SELFPAY ==
[2017-11-05] MEDS ORDERED: NACL 0.9% 1000 ML 1,000 ML IV ONE (08:38)
[2017-11-05 09:10] LABS: Basophils % (Auto) 0.6 % (0.0-1.8); Eosinophils % (Auto) 0.1 % (0.0-4.3); Hematocrit 44.2 % (35.5-45.6); Lymphocytes # (Auto) 1.5 K/mm3 (1.2-5.4); Lymphocytes % (Auto) 25.9 % (13.4-35.0); Mean Corpuscular HGB Conc 34 % (32-34); Mean Corpuscular Hemoglobin 34 pg (28-32); Mean Corpuscular Volume 101 fl (84-94); Monocytes # (Auto) 0.6 K/mm3 (0.0-0.8); Monocytes % (Auto) 9.3 % (0.0-7.3); Platelet Count 261 K/mm3 (140-440); Red Blood Count 4.38 M/mm3 (3.65-5.03); Red Cell Distribution Width 15.2 % (13.2-15.2)
[2017-11-05 09:25] LABS: Alanine Aminotransferase 20 units/L (7-56); Albumin 3.8 g/dL (3.9-5); BUN/Creatinine Ratio 5; Blood Urea Nitrogen 6 mg/dL (9-20); Calcium 8.9 mg/dL (8.4-10.2); Hemolysis Index 17
[2017-11-05 11:28] LABS: INR 0.94 (0.87-1.13)
--- NOTE | 2017-11-05 15:19 | Emergency Department Report ---
ED General Adult HPI - General Chief complaint: Abdominal Pain Stated complaint: ABD PAIN,PEDAL EDEMA Time Seen by Provider: 11/05/17 15:12 Source: patient, EMS Mode of arrival: Stretcher Limitations: No Limitations - History of Present Illness Initial comments: 42-year-old male whose triage note states that he is here back pain and "my pancreas". However when I woke patient up from sleep he told me that he was here with a chief complaint of swollen feet". He has a history of most likely a pancreatic pseudocyst. He has been to the emergency department several times for chronic back and abdominal pain. He's had an MRI of his abdomen which was pancreatic pseudocyst. A previous CT a mass of the pancreatic head was entertained. However, subsequent radiological interpretations indicate that these findings are most likely consistent with a pancreatic pseudocyst as demonstrated on MRI. The patient has chronic dilatation of pancreatic ducts. He has had several lipase assays have been within normal limited on today's had previous emergency Department visits. I have seen this patient in July 2017. At that time, the patient had a partially occluding DVT involving the distal superior femoral vein, popliteal and posterior tibial vein of the right lower extremity. On February 05 2017, the patient was found to have a partially occluding DVT. In July the patient was discharged with a prescription for Eliquis and associated coupon. He states that he went to the pharmacy but he was told that he was "ineligible". I suspect the patient has been on anticoagulation in the past and has exceeded the coverage for drug company assistance. The patient did not make any appropriate effort to follow-up on the problem with anticoagulation. He decided to present to the emergency department for leg edema which is apparently both severe and chronic. He does not complain of acute shortness of breath. -: Gradual, week(s) Location: back, abdomen, lower extremity Radiation: non-radiation Quality: aching Consistency: intermittent Improves with: none Worsens with: none Associated Symptoms: denies other symptoms Treatments Prior to Arrival: other (noncompliant with anticoagulation plan did not follow-up) - Related Data Previous Rx's Medication Instructions Recorded Last Taken Type Pantoprazole [Protonix] 40 mg PO QDAY #30 tablet 01/29/17 Unknown Rx amLODIPine [Norvasc] 5 mg PO DAILY #30 tab 02/05/17 Unknown Rx Ondansetron [Zofran Odt] 4 mg PO Q8HR PRN #14 tab.rapdis 03/04/17 Unknown Rx Warfarin Sodium [Coumadin] 2.5 mg PO DAILY #30 tablet 03/04/17 Unknown Rx Apixaban [Eliquis] 5 mg PO BID #10 tablet 07/28/17 Unknown Rx Apixaban [Eliquis] 5 mg PO DAILY #74 tablet 07/28/17 Unknown Rx oxyCODONE /ACETAMINOPHEN [Percocet 1 tab PO Q6HR PRN #10 tablet 07/28/17 Unknown Rx 5/325] Allergies Allergy/AdvReac Type Severity Reaction Status Date / Time No Known Allergies Allergy Verified 06/25/13 09:48 ED Review of Systems ROS: Stated complaint: ABD PAIN,PEDAL EDEMA Other details as noted in HPI Constitutional: denies: chills, fever Eyes: denies: eye pain, eye discharge, vision change ENT: denies: ear pain, throat pain Respiratory: denies: cough, shortness of breath, wheezing Cardiovascular: denies: chest pain, palpitations Endocrine: no symptoms reported Gastrointestinal: abdominal pain. denies: nausea, diarrhea Genitourinary: denies: urgency, dysuria Musculoskeletal: back pain. denies: joint swelling, arthralgia Skin: denies: rash, lesions Neurological: denies: headache, weakness, paresthesias Psychiatric: denies: anxiety, depression Hematological/Lymphatic: denies: easy bleeding, easy bruising ED Past Medical Hx - Past Medical History Hx Hypertension: Yes Hx Congestive Heart Failure: No Hx Diabetes: No Hx Deep Vein Thrombosis: Yes (in right hand, states 10 years ago) Hx Asthma: No Hx COPD: No Additional medical history: pancreatitis see HPI - Surgical History Hx Cholecystectomy: Yes Additional Surgical History: Left lower extremity rods and pins secondary to fracture, pin in right thumb - Social History Smoking Status: Current Every Day Smoker - Medications Home Medications: Home Medications Medication Instructions Recorded Confirmed Last Taken Type Pantoprazole [Protonix] 40 mg PO QDAY #30 tablet 01/29/17 07/28/17 Unknown Rx amLODIPine [Norvasc] 5 mg PO DAILY #30 tab 02/05/17 07/28/17 Unknown Rx Ondansetron [Zofran Odt] 4 mg PO Q8HR PRN #14 tab.rapdis 03/04/17 07/28/17 Unknown Rx Warfarin Sodium [Coumadin] 2.5 mg PO DAILY #30 tablet 03/04/17 07/28/17 Unknown Rx Apixaban [Eliquis] 5 mg PO BID #10 tablet 07/28/17 Unknown Rx Apixaban [Eliquis] 5 mg PO DAILY #74 tablet 07/28/17 Unknown Rx oxyCODONE /ACETAMINOPHEN [Percocet 1 tab PO Q6HR PRN #10 tablet 07/28/17 Unknown Rx 5/325] ED Physical Exam - General Limitations: No Limitations General appearance: alert, in no apparent distress - Head Head exam: Present: atraumatic, normocephalic - Eye Eye exam: Present: normal appearance. Absent: scleral icterus - ENT ENT exam: Present: mucous membranes moist - Neck Neck exam: Present: normal inspection. Absent: tenderness, meningismus - Respiratory Respiratory exam: Present: normal lung sounds bilaterally. Absent: respiratory distress - Cardiovascular Cardiovascular Exam: Present: regular rate, normal rhythm. Absent: systolic murmur, diastolic murmur, rubs, gallop - GI/Abdominal GI/Abdominal exam: Present: soft, normal bowel sounds. Absent: distended, tenderness, guarding, rebound, rigid - Rectal Rectal exam: Present: deferred - Extremities Exam Extremities exam: Present: pedal edema, other (patient has 3+ bilateral lower extremity ankle and pedal edema. Neurovascular exam is intact.) - Back Exam Back exam: Present: normal inspection. Absent: CVA tenderness (R), CVA tenderness (L) - Neurological Exam Neurological exam: Present: alert, oriented X3, CN II-XII intact. Absent: motor sensory deficit - Psychiatric Psychiatric exam: Present: normal affect, normal mood - Skin Skin exam: Present: warm, dry, intact, normal color. Absent: rash ED Course Vital Signs 11/05/17 08:34 Temperature 98.6 F Pulse Rate 101 H Respiratory 15 Rate Blood Pressure 116/67 O2 Sat by Pulse 95 Oximetry - Reevaluation(s) Reevaluation #1: Ultrasound showed bilateral chronic DVT. Official vascular interpretation is Pending. The patient needs chronic anticoagulation. He is referred to the hospitalist service for further care and evaluation. I do not think his abdominal pain and back pain is anything acute. Indeed he states the reason why he is here is for his leg swelling. 11/05/17 18:21 ED Medical Decision Making - Lab Data Result diagrams: 11/05/17 08:39 11/05/17 08:39 Laboratory Results - last 24 hr 11/05/17 11/05/17 11/05/17 08:39 08:39 08:39 WBC 6.0 RBC 4.38 Hgb 15.0 Hct 44.2 MCV 101 H MCH 34 H MCHC 34 RDW 15.2 Plt Count 261 Lymph % (Auto) 25.9 [place] % (Auto) 9.3 H Eos % (Auto) 0.1 Baso % (Auto) 0.6 Lymph # 1.5 [place] # 0.6 Eos # 0.0 Baso # 0.0 Seg Neutrophils % 64.1 Seg Neutrophils # 3.8 PT INR Sodium 139 Potassium 3.9 Chloride 101.3 Carbon Dioxide 19 L Anion Gap 23 BUN 6 L Creatinine 1.1 Estimated GFR > 60 BUN/Creatinine Ratio 5 Glucose 90 Calcium 8.9 Total Bilirubin 0.30 AST 31 ALT 20 Alkaline Phosphatase 62 NT-Pro-B Natriuret Pep 21.67 Total Protein 7.3 Albumin 3.8 L Albumin/Globulin Ratio 1.1 Lipase 39 11/05/17 10:55 WBC RBC Hgb Hct MCV MCH MCHC RDW Plt Count Lymph % (Auto) [place] % (Auto) Eos % (Auto) Baso % (Auto) Lymph # [place] # Eos # Baso # Seg Neutrophils % Seg Neutrophils # PT 13.0 INR 0.94 Sodium Potassium Chloride Carbon Dioxide Anion Gap BUN Creatinine Estimated GFR BUN/Creatinine Ratio Glucose Calcium Total Bilirubin AST ALT Alkaline Phosphatase NT-Pro-B Natriuret Pep Total Protein Albumin Albumin/Globulin Ratio Lipase - Radiology Data interpreted by me: Discussed with Doppler tech. Official report is pending. Critical care attestation.: If time is entered above; I have spent that time in minutes in the direct care of this critically ill patient, excluding procedure time. ED Disposition Clinical Impression: Venous insufficiency of both lower extremities DVT, lower extremity Qualifiers: Affected thrombotic vein of extremity: unspecified vein of extremity Chronicity : chronic Laterality: bilateral Qualified Code(s): I82.503 - Chronic embolism and thrombosis of unspecified deep veins of lower extremity, bilateral Disposition: DC- TO HOME OR SELFCARE Is pt being admited?: Yes Does the pt Need Aspirin: No Condition: Stable Referrals: PRIMARY CARE, [Primary Care Provider] - 3-5 Days Time of Disposition: 18:23
--- NOTE | 2017-11-05 17:04 | XRay Report ---
FINAL REPORT PROCEDURE: XR CHEST 1V AP TECHNIQUE: Chest radiograph anteroposterior view. CPT 16483 HISTORY: Difficulty breathing COMPARISON: No prior studies are available for comparison. FINDINGS: Heart: Normal. Mediastinum/Vessels: Normal. Lungs/Pleural space: Normal. Bony thorax: No acute osseous abnormality. Life support devices: None. IMPRESSION: No acute cardiopulmonary abnormality.
[2017-11-05 18:27] LABS: Bilirubin,Urine NEG (Negative); Blood,Urine NEG (Negative); Color,Urine Yellow (Yellow); Mucus,Urine FEW /HPF; Protein,Urine <15 mg/dL mg/dL (Negative)
--- NOTE | 2017-11-05 18:34 | History and Physical Report ---
History of Present Illness Chief complaint: My leg hurts, I dont have my medicine History of present illness: 42 YO Male with HTN, chronic Pancreatic Pseudoccyst, Nicotine Dependence, DVT noncompliant with anticoagulation, ETOH Dependence, presents to ED for evaluation. Pt seen and evaluated in ED and found to have chronic DVT. Pt medically optimized. Pt treated with therapeutic anticoagulation, and discharged home with coupon for free therapeutic anticoagulation. Pt counseled regarding thromboembolic disease, Pulmonary Embolism and risk of if continued medication noncompliance. Pt acknowledges understanding instruction. Pt seen and evaluated in ED and found to have no acute findings on physical exam. Past History Past Medical History: DVT, hypertension Past Surgical History: cholecystectomy, Other (Left leg, Right thumb) Social history: single, smoking, alcohol abuse Family history: hypertension Medications and Allergies Allergies Allergy/AdvReac Type Severity Reaction Status Date / Time No Known Allergies Allergy Verified 06/25/13 09:48 Home Medications Medication Instructions Recorded Confirmed Last Taken Type Pantoprazole [Protonix] 40 mg PO QDAY #30 tablet 01/29/17 07/28/17 Unknown Rx amLODIPine [Norvasc] 5 mg PO DAILY #30 tab 02/05/17 07/28/17 Unknown Rx Ondansetron [Zofran Odt] 4 mg PO Q8HR PRN #14 tab.rapdis 03/04/17 07/28/17 Unknown Rx Warfarin Sodium [Coumadin] 2.5 mg PO DAILY #30 tablet 03/04/17 07/28/17 Unknown Rx Apixaban [Eliquis] 5 mg PO BID #10 tablet 11/05/17 Unknown Rx Apixaban [Eliquis] 5 mg PO DAILY #74 tablet 11/05/17 Unknown Rx oxyCODONE /ACETAMINOPHEN [Percocet 1 tab PO Q6HR PRN #10 tablet 11/05/17 Unknown Rx 5/325] Active Meds: Active Medications Apixaban (Eliquis) 10 mg PO Q12HR DIDI; Protocol Review of Systems Constitutional: chronic pain, other (I dont have my medication) Ears, nose, mouth and throat: no ear pain, no ear discharge, no tinnitis, no decreased hearing, no nose pain Cardiovascular: no chest pain, no orthopnea, no palpitations, no rapid/ irregular heart beat, no edema, no syncope Respiratory: no cough, no cough with sputum, no excessive sputum, no hemoptysis , no shortness of breath, no dyspnea on exertion, no congestion, no wheezing, no pleurisy Gastrointestinal: no abdominal pain, no nausea, no vomiting, no diarrhea Genitourinary Male: no dysuria, no hematuria, no flank pain, no discharge, no urinary frequency Rectal: no pain, no incontinence, no bleeding Musculoskeletal: no neck stiffness, no neck pain, no shooting arm pain, no arm numbness/tingling, no low back pain, no shooting leg pain, no redness of joints Integumentary: no rash, no pruritis, no redness, no sores, no wounds, no jaundice, no boils Neurological: no head injury, no transient paralysis, no paralysis, no parathesias, no numbness, no tingling, no seizures Psychiatric: no anxiety, no memory loss, no change in sleep habits, no sleep disturbances, no insomnia, no hypersomnia, no change in appetite, no change in libido Endocrine: no cold intolerance, no heat intolerance, no polyphagia, no excessive thirst, no polydipsia Hematologic/Lymphatic: no easy bruising, no easy bleeding, no lymphadenopathy, no lymphedema Allergic/Immunologic: no urticaria, no allergic rhinitis, no wheezing Exam - Constitutional Vitals: Temp Pulse Resp BP Pulse Ox 98.6 F 101 H 15 116/67 95 11/05/17 08:34 11/05/17 08:34 11/05/17 08:34 11/05/17 08:34 11/05/17 08:34 General appearance: Present: no acute distress, well-nourished - EENT Eyes: Present: PERRL ENT: hearing intact, clear oral mucosa - Neck Neck: Present: supple, normal ROM - Respiratory Respiratory effort: normal Respiratory: bilateral: CTA - Cardiovascular Heart Sounds: Present: S1 & S2. Absent: rub, click - Extremities Extremities: pulses symmetrical, No edema Peripheral Pulses: within normal limits - Abdominal General gastrointestinal: Present: soft, non-tender, non-distended, normal bowel sounds Male genitourinary: Present: normal - Integumentary Integumentary: Present: clear, warm, dry - Musculoskeletal Musculoskeletal: gait normal, strength equal bilaterally - Psychiatric Psychiatric: appropriate mood/affect, intact judgment & insight - Neurologic Neurologic: CNII-XII intact, moves all extremities Results - Labs CBC & Chem 7: 11/05/17 08:39 11/05/17 08:39 Labs: Abnormal lab results 11/05/17 11/05/17 Range/Units 08:39 08:39 MCV 101 H (84-94) fl MCH 34 H (28-32) pg [place] % (Auto) 9.3 H (0.0-7.3) % Carbon Dioxide 19 L (22-30) mmol/L BUN 6 L (9-20) mg/dL Albumin 3.8 L (3.9-5) g/dL Assessment and Plan - Patient Problems (1) DVT (deep venous thrombosis) Status: Acute Qualifiers: DVT location: lower extremity Chronicity: chronic Laterality: right Plan to address problem: BLE Duplex, No acute findings, Therapeutic anticoagulation. hypercoagulable studies, F/U with hematology 1wk, F/U pcp 1wk, (2) Pancreatic pseudocyst Status: Acute Plan to address problem: Pain control, (3) Noncompliance Status: Acute Plan to address problem: Pt counseled regarding medication noncompliance. Pt acknowledges understanding instructions.
[2017-11-05 18:35] LABS: Amphetamine Screen,Urine PRESUMPTIVE NEGATIVE; Benzodiazepines Screen,Urine PRESUMPTIVE NEGATIVE; Cannabinoid Screen,Urine PRESUMPTIVE NEGATIVE; Cocaine Screen,Urine PRESUMPTIVE NEGATIVE; Methadone Screen,Urine PRESUMPTIVE NEGATIVE; Opiate Screen,Urine PRESUMPTIVE NEGATIVE
[2017-11-05] MEDS: ELIQUIS PO SCH ×2 (20:03→22:40)
[2017-11-05] MEDS ORDERED: ELIQUIS PO SCH (22:00)
[2017-11-05 22:37] VITALS: BP 138/81
--- NOTE | 2017-11-08 10:12 | Vascular Lab Report ---
LOWER EXTREMITY VENOUS DUPLEX: REASON FOR EXAM: Pain and swelling of the lower extremities. COMMENTS ON THE RIGHT: Partially occluding chronic thrombus is noted in the distal superficial femoral and popliteal veins. This is consistent with a previous report dated July 28, 2017. The remaining veins visualized are freely compressible without evidence of internal echogenicity. Spontaneous and phasic flow is present proximally. COMMENTS ON THE LEFT: There is partially occluding organized thrombus at the popliteal vein. Previous study in January of 2017 did not show any thrombus in the popliteal vein. The clot itself has findings consistent with subacute thrombus as it appears to be somewhat organized. The remaining veins visualized are freely compressible without evidence of internal echogenicity. Spontaneous and phasic flow is present proximally. IMPRESSION: Left popliteal vein deep venous thrombosis which was not noted on a previous study dated January of 2017. The thrombus has subacute qualities. Overall it appears to be of an indeterminate age. 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 These findings were noted on a previous study in July of 2017.
== END 2017-11-05 22:40 | disposition home or self-care (01) ==
LOC: ED 07:59
DX: I82.503 Chronic embolism and thrombosis of unspecified deep veins of lower extremity, bilateral (principal); I87.2 Venous insufficiency (chronic) (peripheral); I10 Essential (primary) hypertension; F17.200 Nicotine dependence, unspecified, uncomplicated; Z90.49 Acquired absence of other specified parts of digestive tract; Z79.01 Long term (current) use of anticoagulants
CPT/HCPCS: 36415; 71045; 80053; 80307; 81001; 83516; 83690; 83880; 85025; 85301; 85305; 85307; 85610; 85613; 86147; 93005; 93010; 93970

== ENCOUNTER 2017-11-07 01:23 | Emergency (ER) | payer SELFPAY ==
[2017-11-07 02:25] LABS: Bacteria,Urine 1+ /HPF (Negative); Bilirubin,Urine NEG (Negative); Blood,Urine NEG (Negative); Color,Urine Yellow (Yellow); Mucus,Urine FEW /HPF; Protein,Urine <15 mg/dL mg/dL (Negative); Urobilinogen,Urine < 2.0 mg/dL (<2.0)
--- NOTE | 2017-11-07 02:56 | XRay Report ---
FINAL REPORT EXAM: XR HIP 2-3V LT HISTORY: Left hip pain post fall TECHNIQUE: An AP view of the pelvis was obtained along with a frogleg view of the left hip. FINDINGS: The left hip joint space is well maintained. There is no evidence of acute fracture. There is an intramedullary lorelei in the proximal left femoral shaft from previous ORIF. The bony pelvic ring appears intact. The SI joints and right hip joint do not show any acute changes. IMPRESSION: No acute injury.
--- NOTE | 2017-11-07 02:58 | XRay Report ---
FINAL REPORT EXAM: XR SHOULDER 2+V LT HISTORY: Left shoulder pain post fall TECHNIQUE: Three views of the left shoulder were submitted. FINDINGS: There is a grade 4 AC joint separation. With this is acute or chronic is uncertain. The glenohumeral joint appears intact. There is narrowing of the subacromial space. The soft tissues otherwise reveal a calcification beneath the undersurface of the distal end of the left clavicle. IMPRESSION: Grade 4 AC joint separation. With this is acute or chronic injury is uncertain. Narrowing of the subacromial space noted also.
--- NOTE | 2017-11-07 02:59 | XRay Report ---
FINAL REPORT EXAM: XR FEMUR 1V LT HISTORY: Left femur pain post fall TECHNIQUE: Two AP views of the left femur were obtained. FINDINGS: There has been previous ORIF for distal diaphyseal shaft fracture with intramedullary lorelei in place with proximal distal transverse locking screws. There is complete healing of the fracture with callus formation. The distal most transverse locking screws fracture. There is no evidence of acute fracture. The hip and knee joints not show any acute changes. IMPRESSION: Previous ORIF for distal femoral diaphyseal fracture which appears well healed. Fracture of the distal most transverse locking screw. As to whether this is a recent remote issue is uncertain. No acute fracture otherwise.
[2017-11-07] MEDS ORDERED: TYLENOL PO ONE (03:12)
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
--- NOTE | 2017-11-07 04:05 | XRay Report ---
FINAL REPORT EXAM: XR HAND 2V RT HISTORY: pain R thumb after fall TECHNIQUE: Portable AP and lateral views of the right hand were submitted. FINDINGS: There is no evidence of acute fracture or dislocation. There is mild narrowing of the 1st metacarpal phalangeal joint. There is no evidence of fracture of the thumb. In the wrist there is previous remote fracture of the navicular bone with screw fixation noted. There is narrowing of the radiocarpal joint also. There is also deformity of the lunate bone which appears to be related to a chronic injury also. IMPRESSION: No acute fracture or dislocation. 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 Remote trauma and deformity of the navicular bone and lunate bone with arthritic changes of the radiocarpal joint as described.
--- NOTE | 2017-11-07 04:06 | XRay Report ---
FINAL REPORT EXAM: XR HUMERUS 2+V LT HISTORY: pain L arm after fall TECHNIQUE: Three views of the left humerus were submitted. FINDINGS: There is no evidence of acute fracture. The elbow joint is not show any acute changes. In the shoulder there is a grade 4 AC joint separation which is of uncertain age. IMPRESSION: Grade 4 AC joint separation. No acute fracture involving the left humerus.
[2017-11-07 04:55] VITALS: BP 125/86
== END 2017-11-07 04:55 | disposition home or self-care (01) ==
LOC: ED 01:23
DX: S43.102A Unspecified dislocation of left acromioclavicular joint, initial encounter (principal); S63.681A Other sprain of right thumb, initial encounter; S40.022A Contusion of left upper arm, initial encounter; S70.02XA Contusion of left hip, initial encounter; I10 Essential (primary) hypertension; F17.200 Nicotine dependence, unspecified, uncomplicated; Z90.49 Acquired absence of other specified parts of digestive tract; Z86.718 Personal history of other venous thrombosis and embolism; Z79.01 Long term (current) use of anticoagulants; W19.XXXA Unspecified fall, initial encounter; Y93.89 Activity, other specified; Y99.8 Other external cause status; Y92.89 Other specified places as the place of occurrence of the external cause
CPT/HCPCS: 81001